=== PATIENT | female | born 1965 | race Caucasian/White ===

== ENCOUNTER 2024-07-05 06:30 | Day surgery (SDC) | payer MEDICARE, MEDICAID ==
[2024-07-05 06:48] LABS: BASOPHILS ABSOLUTE AUTO 0.06 K/uL (0.00-0.10); BASOPHILS PERCENT AUTO 1.1 % (0.1-1.3); EOSINOPHILS ABSOLUTE AUTO 0.37 K/uL (0.00-0.40); EOSINOPHILS PERCENT AUTO 6.8 % (0.0-5.4); HEMATOCRIT 44.2 % (34.3-46.0); HEMOGLOBIN 14.4 g/dL (11.2-15.5); IMMATURE GRAN PERCENT AUTO 0.2 % (0.0-0.7); LYMPHOCYTES ABSOLUTE AUTO 2.22 K/uL (0.8-3.3); LYMPHOCYTES PERCENT AUTO 40.7 % (11.4-47.7); MEAN CORPUSCULAR HEMOGLOBIN 33.3 pg (31.6-35.5); MEAN CORPUSCULAR HGB CONC 32.6 g/dL (31.6-35.5); MEAN CORPUSCULAR VOLUME 102.1 fL (81.4-99.0); MONOCYTES ABSOLUTE AUTO 0.56 K/uL (0.20-0.90); MONOCYTES PERCENT AUTO 10.3 % (3.3-12.6); NEUTROPHILS ABSOLUTE AUTO 2.24 K/uL (1.0-7.6); NEUTROPHILS PERCENT AUTO 40.9 % (40.0-78.1); PLATELET COUNT,PLT 271 K/uL (130-375); RED BLOOD CELL COUNT 4.33 M/uL (3.77-5.24); WHITE BLOOD CELL COUNT,WBC 5.5 K/uL (3.2-11.0)
[2024-07-05 06:50] LABS: IMMATURE GRAN ABSOLUTE AUTO 0.01 K/uL (0.00-0.23)
[2024-07-05 07:08] LABS: A/G RATIO 1.3 (1.2-2.2); ALANINE AMINOTRANSFERASE,ALT 35 U/L (12-78); ALBUMIN 3.9 g/dL (3.4-5.0); ALKALINE PHOSPHATASE 66 U/L (46-116); ASPARTATE AMNIOTRANSFERASE,AST 92 U/L (15-37); BILIRUBIN TOTAL 0.1 mg/dL (0.2-1.0); BLOOD UREA NITROGEN,BUN 16 mg/dL (7-18); CALCIUM 9.2 mg/dL (8.5-10.1); CARBON DIOXIDE,CO2 26 mmol/L (21-32); CHLORIDE,CL 107 mmol/L (100-108); CREATININE 0.7 mg/dL (0.6-1.0); ESTIMATED GFR 100 mL/min (>60); GLUCOSE RANDOM 93 mg/dL (74-106); POTASSIUM,K 4.5 mmol/L (3.6-5.2); PROTEIN TOTAL,TP 6.9 g/dL (6.4-8.2); SODIUM,NA 144 mmol/L (140-148)
[2024-07-05] MEDS ORDERED: Propofol 200 MG/20 ML SDV ONE (07:17)
[2024-07-05] MEDS ORDERED: Midazolam 1 MG/ML 2 ML SDV ONE (07:17)
[2024-07-05] MEDS ORDERED: Dexamethasone 4 MG/ML SDV ONE (07:17)
[2024-07-05] MEDS ORDERED: fentaNYL 100 MCG/2 ML SDV ONE (07:17)
[2024-07-05] MEDS ORDERED: Ondansetron 4 MG/2 ML SDV ONE (07:17)
[2024-07-05] MEDS ORDERED: Bupivacaine 0.5% 30 ML SDV ONE (07:19)
[2024-07-05] MEDS: Nozin Nasal Sanitizer NASBOTH ONE (07:30)
[2024-07-05] MEDS ORDERED: ceFAZolin 2 GM in Sodium Chloride 0.9% 50 ML IV ONE (07:30)
[2024-07-05] MEDS: Lactated Ringers 1,000 ML IV SCH (07:30)
[2024-07-05] MEDS: ceFAZolin 2 GM in Premix Bag 1 BAG IV ONE (07:52)
[2024-07-05] MEDS: Bupivacaine 0.5% 50 ML MDV ONE (08:42)
[2024-07-05] MEDS ORDERED: Lactated Ringers 1,000 ML ONE (10:15)
== END 2024-07-05 11:45 | disposition home or self-care (01) ==
LOC: JP.SDS 06:30
PROVIDERS: ATTEND Specialist
DX: M75.111 Incomplete rotator cuff tear or rupture of right shoulder, not specified as traumatic (principal); M75.41 Impingement syndrome of right shoulder; M19.011 Primary osteoarthritis, right shoulder; F17.200 Nicotine dependence, unspecified, uncomplicated
CPT/HCPCS: 01630; 29822; 29824; 29826; 29827; 36415; 80053; 85025; A9270; C1713; J0665; J0690; J1100; J2250; J2405; J2704; J3010; J7120